=== PATIENT | female | born 1980 | race Caucasian/White ===

== ENCOUNTER 2024-09-05 01:20 | Day surgery (SDC) | payer OTHER, SELFPAY ==
[2024-08-23 14:25] VITALS: BMI 42.7
[2024-09-05 09:26] VITALS: BP 132/87; PULSE 71; RESP 18; TEMP 36.4; O2SAT 97
[2024-09-05 09:36] VITALS: BMI 41.1
[2024-09-05 09:46] LABS: BEDSIDEPREGUCG Negative (Negative)
[2024-09-05] MEDS: LACTATED RINGERS 1,000 ML 150 ML IV CONT (09:48)
--- NOTE | 2024-09-05 11:06 | PM.IMHP ---
H&P: HPI History of Present Illness Date/Time: 09/05/24 11:06 Chief Complaint: Family history of colon cancer Narrative: This patient has family history of colorectal cancer. her mother had colorectal cancer at age 60. Review of Systems Review of Systems: All systems reviewed & are unremarkable except as noted in HPI and below [facility] Social History Social History (System 08/01/24 @ 09:07 by Dory Gooden) Smoking status: Never smoker Alcohol intake: never Living arrangements: with family Meds Home Medications and Allergies Home Medications Medication Instructions Recorded Confirmed Type No Home Medications 08/23/24 09/05/24 History Allergies Allergy/AdvReac Type Severity Reaction Status Date / Time No Known Allergies Allergy Verified 08/23/24 14:24 Vital Signs Vital Signs - 24 hr 09/05/24 09:26 Temperature 97.6 F Pulse Rate 71 Respiratory Rate 18 Blood Pressure 132/87 Pulse Oximetry 97 Oxygen Delivery Room Air Exam Const: General: cooperative and healthy appearing Resp: Effort & Inspection: normal respiratory effort and able to speak in complete sentences Auscultation: clear to auscultation bilaterally Cardio: Rate: regular rate Rhythm: regular rhythm GI: Inspection: normal to inspection GI Palp: No No hepatosplenomegaly present Auscultation: normal bowel sounds Rectal Exam: deferred Skin: General skin exam: normal color Psych: Appearance: grossly normal Mental Status: mental status grossly normal Assessment and Plan Assessment and plan (1) Family history of colon cancer: Code(s): Z80.0 - Family history of malignant neoplasm of digestive organs Status: Acute Assessment and Plan: The patient is deemed a good candidate for the procedure. Consent signed. Will proceed.
--- NOTE | 2024-09-05 11:07 | P.PNAN_ITS ---
Anes - Initial Pre Proc Eval Procedure: Operation Date: 09/05/24 10:30 Proposed Procedures p Colonoscopy - Artur Orellana MD Date/Time: 09/05/24 11:07 Surgeon: Artur Orellana MD Pre Op Diagnosis: hx of colon polyps Patient Data Age: 44 Gender: F Height: 1.68 m Weight: 115.6 kg Last Vital Signs Temp 36.4 C 09/05/24 09:26 Pulse 71 09/05/24 09:26 Resp 18 09/05/24 09:26 BP 132/87 09/05/24 09:26 Pulse Ox 97 09/05/24 09:26 O2 Del Method Room Air 09/05/24 09:26 Allergies Allergy/AdvReac Type Severity Reaction Status Date / Time No Known Allergies Allergy Verified 08/23/24 14:24 Home Medications Medication Instructions Recorded Confirmed Type No Home Medications 08/23/24 09/05/24 History Laboratory Tests 09/05/24 09:43 POC Urine HCG, Qual Negative (Negative) Patient hx anesthesia problems: none Family hx anesthesia problems: none Results Review: All pre-operative results and documents have been reviewed as part of the pre- operative evaluation. [facility] Social History Social History Smoking status: Never smoker Alcohol intake: never Living arrangements: with family Anes - Eval Final PreProcedure Day of Procedure 09/05/24 11:07 Patient weight: morbidly obese Heart: regular rate and rhythm Lungs: clear to auscultation and normal air movement Airway: Mallampati scale class II Neurological: alert and oriented Last oral intake: >/= 8 hours ASA classification: III Emergent: no Anesthetic plan: proceed Anesthesia type and monitoring: general GIVS and standard monitoring Results Review: All pre-operative results and documents have been reviewed as part of the pre- operative evaluation. Informed Consent: The patient's anesthetic plan and its attendant risks and benefits were discussed with the patient/family/POA. Questions were solicited and answers provided to the satisfaction of the patient/family/POA.
[2024-09-05 11:32] VITALS: BP 113/70; PULSE 74; RESP 20; O2SAT 97
[2024-09-05 11:42] VITALS: BP 117/76; PULSE 59; RESP 24; O2SAT 100
[2024-09-05 11:52] VITALS: BP 125/82; PULSE 61; RESP 21; O2SAT 100
== END 2024-09-05 12:00 | disposition home or self-care (01) ==
PROVIDERS: Nurse Anesthetist, Certified Registered; PCP Nurse Practitioner; Visit Provider Internal Medicine Gastroenterology
PROC: 0DJD8ZZ Inspection of Lower Intestinal Tract, Via Natural or Artificial Opening Endoscopic (ICD-10-PCS; CPT 45378; principal; 2024-09-05 10:30)
DX: Z12.11 Encounter for screening for malignant neoplasm of colon (principal); Z80.0 Family history of malignant neoplasm of digestive organs; Z86.0100 Personal history of colon polyps, unspecified; E66.01 Morbid (severe) obesity due to excess calories; Z68.41 Body mass index [BMI] 40.0-44.9, adult
CPT/HCPCS: 45378; J2003; J2704; J7120

== ENCOUNTER 2024-12-26 14:15 | Outpatient (CLI) | payer OTHER, SELFPAY ==
--- NOTE | ~2024-12-26 | MM_ITS ---
EXAMINATION: MM screening aggie BI w an[facility]ell HISTORY: Screening mammogram TECHNIQUE: Craniocaudal and mediolateral oblique 3-D tomosynthesis images were obtained and synthetic 2-D images were generated. CAD analysis was submitted and interpreted. COMPARISON: No prior mammogram is available for comparison at this institution. BREAST PARENCHYMAL COMPOSITION:Not Dense. The breasts are almost entirely fatty FINDINGS: No suspicious mass, calcification, or architectural distortion are identified in either osman ast to suggest malignancy. There has been no suspicious interval change. IMPRESSION: No mammographic evidence of malignancy. Recommend routine screening mammography in one year. BI-RADS Category 1: Negative Reviewed, dictated and finalized at location . [employer]
== END 2024-12-26 14:16 | disposition home or self-care (01) ==
LOC: MICIMG 14:16
PROVIDERS: PCP Nurse Practitioner; Visit Provider Nurse Practitioner
DX: Z12.31 Encounter for screening mammogram for malignant neoplasm of breast (principal)
CPT/HCPCS: 77063; 77067